=== PATIENT | female | born 1985 | race Caucasian/White ===

== ENCOUNTER 2021-09-10 05:18 | Emergency (ER) | payer BC ==
[2021-09-10] MEDS ORDERED: Ibuprofen 800 MG TAB ONE (05:52)
[2021-09-10] MEDS ORDERED: AMOXicillin 250 MG CAP ONE (06:15)
[2021-09-10 17:10] LABS: SARS-CoV-2 PCR by NAA Not Detected (NotDetected)
== END 2021-09-10 06:20 | disposition home or self-care (01) ==
LOC: MADERS 05:18
DX: J02.0 Streptococcal pharyngitis (principal); Z20.822 Contact with and (suspected) exposure to COVID-19
CPT/HCPCS: 87430; 87804; 99283; U0003; U0005